=== PATIENT | male | born 1955 | race Caucasian/White ===

== ENCOUNTER → 2016-07-29 | Outpatient (CLI) | payer BC ==
[~2016-07-29] MED LIST: ALLEGRA 60MG TA60 MG PO; AMBIEN 10MG10 MG PO; ASPIR-LOW81 MG PO; CARDIZEM CD 24240 MG PO; CARDIZEM120 MG PO; FISH OIL1 IU PO; LEXAPRO 10MG10 MG PO; MVI; ULTRAM 50MG TAB50 MG PO
[2016-07-29 08:47] LABS: ADJUSTED CALCIUM 8.8 mg/dL (8.4-10.2); ALBUMIN 4.6 gm/dL (3.5-5.0); BILIRUBIN,TOTAL 0.7 mg/dL (0.0-1.0); CALCIUM 9.3 mg/dL (8.4-10.2); CREATININE, serum 1.1 mg/dL (0.66-1.25); TOTAL PROTEIN 7.3 gm/dL (6.4-8.2)
[2016-07-29 08:47] LABS: PH 6 (5-8); URINE APPEARANCE Clear; URINE BILIRUBIN Negative (NEGATIVE); URINE BLOOD Negative (NEGATIVE); URINE COLOR Yellow; URINE GLUCOSE Negative (NEGATIVE); URINE KETONE Negative (NEGATIVE); URINE UROBILINOGEN Negative (NEGATIVE)
[2016-07-29 08:56] LABS: HEMATOCRIT 46.4 % (42.0-52.0); HEMOGLOBIN 14.9 g/dl (13.5-18.0); MEAN CELL VOLUME 91 fl (80.0-100.0); MEAN CORPUSCULAR HEMOGLOBIN 29 pg (27.0-31.0); MEAN CORPUSCULAR HGB CONC 32 g/dl (33.0-37.0); MEAN PLATELET VOLUME 10.6 fl (7.4-10.4); PLATELET COUNT 211 K/mm3 (130-400); RED BLOOD COUNT 5.09 M/mm3 (4.20-5.60); REDCELL DISTRIBUTION WIDTH-CV 12.9 % (11.5-14.5); WHITE BLOOD COUNT 6.6 K/mm3 (4.8-10.8)
[2016-07-29 09:28] LABS: SQUAMOUS EPITHELIAL 0-2 /hpf; URINE BACTERIA None Seen /hpf; URINE WBC 0-2 /hpf
[2016-07-29 09:36] LABS: POTASSIUM 4.3 mmol/L (3.4-5.0)
[2016-07-29 09:37] LABS: URINE RBC None Seen /hpf
[2016-07-29 10:27] LABS: PSA-TOTAL 4.2 ng/mL (0-4)
== END ==
LOC: COL.LAB 07:50
PROVIDERS: Internal Medicine Geriatric Medicine
DX: N20.0 Calculus of kidney (principal); E78.5 Hyperlipidemia, unspecified; R60.9 Edema, unspecified; R53.83 Other fatigue; E03.9 Hypothyroidism, unspecified
CPT/HCPCS: G0103

== ENCOUNTER → 2016-11-08 | Outpatient (CLI) | payer BC | LOC: COL.LAB 09:27 | DX: E03.9 Hypothyroidism, unspecified (principal) ==

== ENCOUNTER → 2017-03-07 | Outpatient (CLI) | payer BC | LOC: COL.LAB 17:33 | DX: Z12.5 Encounter for screening for malignant neoplasm of prostate (principal) | CPT/HCPCS: G0103 ==

== ENCOUNTER 2017-12-18 10:06 | Inpatient (IN) | payer BC ==
[~2017-12-18] VITALS: Ht 188.1 cm; Wt 89.7 kg
[2018-02-26 12:15] LABS: HEMATOCRIT 44.9 % (42.0-52.0); HEMOGLOBIN 14.6 g/dl (13.5-18.0); MEAN CELL VOLUME 91 fl (80.0-100.0); MEAN CORPUSCULAR HEMOGLOBIN 30 pg (27.0-31.0); MEAN CORPUSCULAR HGB CONC 33 g/dl (33.0-37.0); MEAN PLATELET VOLUME 10.2 fl (7.4-10.4); PLATELET COUNT 195 K/mm3 (130-400); RED BLOOD COUNT 4.92 M/mm3 (4.20-5.60); REDCELL DISTRIBUTION WIDTH-CV 12.9 % (11.5-14.5)
[2018-02-26 12:20] LABS: INR 1.1 (0.8-3.0)
[2018-02-26 12:23] LABS: PARTIAL THROMBOPLASTIN TIME 38.1 SECONDS (26.0-37.0)
[2018-02-26 12:26] LABS: ALBUMIN 4.6 gm/dL (3.5-5.0); BILIRUBIN,TOTAL 0.6 mg/dL (0.0-1.0); CALCIUM 9.7 mg/dL (8.4-10.2); POTASSIUM 5.2 mmol/L (3.4-5.0); TOTAL PROTEIN 7.6 gm/dL (6.4-8.2)
[2018-02-26] MEDS ORDERED: SYNTHROID 0.0.025 MG PO (13:11)
[2018-02-26] MEDS ORDERED: CARDIZEM LA240 MG PO (13:12)
[2018-02-26] MEDS ORDERED: CARDIZEM LA120 MG PO (13:12)
[2018-02-26] MEDS ORDERED: TYLENOL 500MG500 MG PO (13:12)
[2018-02-26] MEDS ORDERED: AMBIEN 10MG10 MG PO (13:14)
[2018-02-26] MEDS ORDERED: ULTRAM 50MG TAB50 MG PO (13:14)
[2018-02-26] MEDS ORDERED: SUDAFED30 MG PO (13:15)
[2018-02-27] VITALS (13 sets, daily range): BP systolic 99–125; BP diastolic 47–74; PULSE 60–83; TEMP 97–973
[2018-02-27 15:31] LABS: HEMATOCRIT 28.8 % (42.0-52.0); HEMOGLOBIN 9.2 g/dl (13.5-18.0)
[2018-02-28 05:18] VITALS: BP 95/52; PULSE 67; TEMP 98.5
[2018-02-28 05:58] LABS: BASO % 0.4 % (0.0-2.0); EOS # 0.1 (0.0-0.7); EOS % 1.6 % (0-4.0); GRAN # 5.8 (1.4-6.5); GRAN % 69.6 % (42.2-75.2); LYMPH # 1.6 (1.2-3.4); LYMPH % 19.2 % (20.0-51.0); MEAN CELL VOLUME 93 fl (80.0-100.0); MEAN CORPUSCULAR HGB CONC 32 g/dl (33.0-37.0); MEAN PLATELET VOLUME 10.2 fl (7.4-10.4); MONO # 0.7 (0.1-0.6); MONO % 8.8 % (1.7-9.3); PLATELET COUNT 119 K/mm3 (130-400); RED BLOOD COUNT 2.76 M/mm3 (4.20-5.60); REDCELL DISTRIBUTION WIDTH-CV 13.1 % (11.5-14.5)
[2018-02-28 06:02] LABS: HEMATOCRIT 25.6 % (42.0-52.0); HEMOGLOBIN 8.2 g/dl (13.5-18.0); MEAN CORPUSCULAR HEMOGLOBIN 30 pg (27.0-31.0)
[2018-02-28 06:11] LABS: CALCIUM 8.1 mg/dL (8.4-10.2); CREATININE, serum 0.88 mg/dL (0.66-1.25); POTASSIUM 4.4 mmol/L (3.4-5.0)
[2018-02-28 08:10] VITALS: BP 101/53; PULSE 87; TEMP 98.3
[2018-02-28 11:55] VITALS: BP 105/59; PULSE 88; TEMP 98.4
[2018-02-28 17:10] VITALS: BP 120/58; PULSE 76; TEMP 97.9
[2018-02-28 19:14] VITALS: BP 120/53; PULSE 71; TEMP 98
[2018-03-01 04:42] VITALS: BP 129/63; PULSE 81; TEMP 98.5
[2018-03-01 07:45] VITALS: BP 120/62; PULSE 72; TEMP 98
== END 2018-03-01 10:20 | disposition home or self-care (01) | DRG 708 ==
LOC: SURG 02-27 07:30 → INPTSU 02-27 07:35 → SURG 02-27 09:30
PROVIDERS: Urology
PROC: 0VT00ZZ Resection of Prostate, Open Approach (ICD-10-PCS; principal; 2018-02-27 09:30)
DX: C61 Malignant neoplasm of prostate (principal); K42.9 Umbilical hernia without obstruction or gangrene; Z95.810 Presence of automatic (implantable) cardiac defibrillator
CPT/HCPCS: A9284; J0690; J2250; J2704; J2795; J3010; J3480; J7050

== ENCOUNTER 2020-11-10 18:53 | Emergency (ER) | payer MEDICARE, OTHER ==
[~2020-11-10] VITALS: Ht 188 cm; Wt 90.0 kg
[~2020-11-10 18:53] MED LIST changes: +CARDIZEM LA120 MG PO; +CARDIZEM LA240 MG PO; +SUDAFED30 MG PO; +SYNTHROID 0.0.025 MG PO; +TYLENOL 500MG500 MG PO
[2020-11-10 19:04] VITALS: TEMP 97.5
[2020-11-10 19:44] VITALS: BP 132/83; PULSE 63
== END 2020-11-10 19:45 | disposition home or self-care (01) ==
LOC: COL.ER 18:53
DX: T15.01XA Foreign body in cornea, right eye, initial encounter (principal); X58.XXXA Exposure to other specified factors, initial encounter

== ENCOUNTER 2020-12-26 20:09 | Emergency (ER) | payer MEDICARE, OTHER ==
[~2020-12-26] VITALS: Ht 188 cm; Wt 88.6 kg
[2020-12-26 21:17] LABS: BASO % 0.7 % (0.0-2.0); EOS # 0.5 K/mm3 (0.0-0.7); EOS % 8.4 % (0-4.0); GRAN # 2.7 K/mm3 (1.4-6.5); GRAN % 43.7 % (42.2-75.2); HEMATOCRIT 41.3 % (42.0-52.0); HEMOGLOBIN 13.2 g/dl (13.5-18.0); LYMPH # 2.3 K/mm3 (1.2-3.4); LYMPH % 37.2 % (20.0-51.0); MEAN CELL VOLUME 92 fl (80.0-100.0); MEAN CORPUSCULAR HEMOGLOBIN 29 pg (27.0-31.0); MEAN CORPUSCULAR HGB CONC 32 g/dl (33.0-37.0); MEAN PLATELET VOLUME 10.7 fl (7.4-10.4); MONO # 0.6 K/mm3 (0.1-0.6); MONO % 9.8 % (1.7-9.3); PLATELET COUNT 249 K/mm3 (130-400); REDCELL DISTRIBUTION WIDTH-CV 12.7 % (11.5-14.5)
[2020-12-26 21:28] LABS: ALBUMIN 4.5 gm/dL (3.4-4.8); BILIRUBIN,TOTAL 0.6 mg/dL (0.2-1.2); CALCIUM 9.8 mg/dL (8.4-10.2); CREATININE, serum 1.1 mg/dL (0.72-1.25); TOTAL PROTEIN 7.5 gm/dL (6.2-8.1)
[2020-12-26 21:34] LABS: TROPONIN-I 0.024 ng/mL (0.00-0.033)
[2020-12-26 22:52] VITALS: BP 141/75; PULSE 65; TEMP 98.6
== END 2020-12-26 22:52 | disposition home or self-care (01) ==
LOC: COL.ER 20:09
PROVIDERS: Student in an Organized Health Care Education/Training Program
DX: H53.9 Unspecified visual disturbance (principal); R20.2 Paresthesia of skin; R07.9 Chest pain, unspecified; Z95.810 Presence of automatic (implantable) cardiac defibrillator
CPT/HCPCS: J7030